=== PATIENT | male | born 1980 | race Caucasian/White ===

== ENCOUNTER 2023-10-10 18:22 | Emergency (ER) | payer SELFPAY ==
[~2023-10-10] VITALS: Ht 182.8 cm; Wt 86.1 kg
--- NOTE | 2023-10-10 18:36 | ED Integumentary General ---
General Chief Complaint: Bite-Animal/Human/Insect Stated Complaint: DOG BITE Source: patient Exam Limitations: no limitations History of Present Illness Date Seen by Provider: Oct 10, 2023 Time Seen by Provider: 18:29 Initial Comments 43-year-old male presents to the ER with a dog bite. Patient reports that the dog is belongs to his son. States the dog is up-to-date on his rabies vaccinations. Patient reports his last tetanus was in 2019. Patient presents w ith several wounds largest of which is located on the fourth digit of the left hand, palmar side. He has 2 lacerations to his chin, and a puncture wound to his right forearm. He also has several superficial cuts to his left forearm, thinks these were caused by the dogs claws. Allergies and Home Medications Allergies Coded Allergies: No Known Drug Allergies (Unverified , 10/10/23) Patient Home Medication List Home Medication List Reviewed: Yes Amoxicillin/Potassium Clav (Amox Tr-K Clv 875-125 mg Tab) 875 Mg-125 Mg Tablet, 1 EACH PO BID Prescribed by: Yoselin Johnson on 10/10/231941 Review of Systems Review of Systems Constitutional: see HPI Physical Exam Vital Signs Vital Signs - First Documented 10/10/23 18:30 Temp 35.6 Pulse 89 Resp 18 B/P (MAP) 139/102 (114) Pulse Ox 100 O2 Delivery Room Air Capillary Refill : General Appearance: WD/WN, no apparent distress Neck: supple, normal inspection Cardiovascular: regular rate, rhythm Respiratory: lungs clear, normal breath sounds, no respiratory distress, no accessory muscle use Extremities: normal range of motion Neurologic/Psychiatric: alert, normal mood/affect Skin: normal color, warm/dry Skin Problem Location: face (Chin), upper extremities (8 cm laceration to palmar side of fourth digit of left hand, several superficial scratches to left forearm, puncture wound to right forearm) Skin Problem Character: other (Laceration, puncture wounds, scratches) Procedures/Interventions Wound Location: Upper Extremities Other Wound Location Palmar side, left hand, fourth digit Wound Length (cm): 8 Wound's Depth, Shape: irregular, sub Q Wound Explored: clean Irrigated w/ Saline (ccs): 500 Anesthesia: 1% Lidocaine Volume Anesthetic (ccs): 5 Suture: Ethlion Suture Size: 4-0 Number of Sutures: 9 Progress Anesthetized with 5 mL of 1% lidocaine. Wound loosely closed due to wound being caused by dog bite. Nine 4-0 Ethilon sutures placed. Dressing placed consisting of Xeroform, gauze, tube gauze, and splint placed. Progress/Results/Core Measures Results/Orders My Orders Orders - YOSELIN QUIJANO CLAYTON Amoxicillin/Clavulanate Tablet (Amoxicil (10/10/23 18:45) Medications Given in ED Current Medications Medications Dose Ordered Sig/Ruddy Route Start Time Stop Time Status Last Admin Dose Admin Amoxicillin/ Clavulanate Potassium 875 mg ONCE ONCE PO 10/10/23 18:45 10/10/23 18:46 DC 10/10/23 18:58 875 MG Vital Signs/I&O 10/10/23 18:30 Temp 35.6 Pulse 89 Resp 18 B/P (MAP) 139/102 (114) Pulse Ox 100 O2 Delivery Room Air Progress Progress Note : Progress Note Patient seen and evaluated, resting comfortably in bed, no acute distress. Wou nds thoroughly cleaned. Puncture wound to right forearm. 2 lacerations to chin. Several scratches to right forearm. Large laceration of the palmar side of the fourth digit of the left hand. This laceration was repaired, see procedure note. Dressing and splint placed, see procedure note. Discussed repairing the lacerations on patient's chin. I encouraged patient not to repair these due to risk of infection. Patient is comfortable not repairing these wounds and is okay if a scar develops. Patient is up-to-date on his tetanus. Dog is up-to-date on rabies vaccinations. First dose of Augmentin given here. Patient discharged with prescription for Augmentin. Patient is stable for discharge. Discharge instructions and return precautions provided. Departure Impression Primary Impression: Dog bite Disposition: 01 HOME, SELF-CARE Condition: Stable Departure-Patient Inst. Decision time for Depature: 19:40 Referrals: NO,LOCAL PHYSICIAN (PCP) Primary Care Physician Patient Instructions: DOG BITE Add. Discharge Instructions: Complete full course of antibiotic as prescribed. Keep the bandage and splint in place for the next 48 hours. You may then remove the bandage. Keep the wound clean and dry. Wear the splint to prevent you from bending your finger. Return in 7 to 10 days to have the sutures removed. Return for signs of infection including redness, swelling, discolored odorous drainage, or any other new, concerning, or worsening symptoms. All discharge instructions reviewed with patient and/or family. Voiced understanding. Scripts Amoxicillin/Potassium Clav (Amox Tr-K Clv 875-125 mg Tab) 875 Mg-125 Mg Tablet 1 EACH PO BID for 10 Days, #19 TAB 0 Refills Prov: YOSELIN QUIJANO APRN 10/10/23 YOSELIN QUIJANO APRN Oct 10, 2023 18:36
[2023-10-10] MEDS ORDERED: AMOXICILLIN/Clavulanate 875 MG TABLET PO ONE (18:45)
[2023-10-10] MEDS ORDERED: AMOX1TAB12 PO (19:42)
[2023-10-10 19:48] VITALS: BP 128/98
== END 2023-10-10 19:48 | disposition home or self-care (01) ==
LOC: ER 18:26
DX: S61.255A Open bite of left ring finger without damage to nail, initial encounter (principal); S51.831A Puncture wound without foreign body of right forearm, initial encounter; S50.812A Abrasion of left forearm, initial encounter; W54.0XXA Bitten by dog, initial encounter
CPT/HCPCS: 12034